=== PATIENT | male | born 1955 | race Caucasian/White ===

== ENCOUNTER 2019-12-18 16:43 | Emergency (ER) | payer MEDICARE, MEDICAID ==
[~2019-12-18] VITALS: Ht 167.6 cm; Wt 74.0 kg
[2019-12-18 17:48] LABS: BASOPHILS % (AUTO) 0.1 % (0-1); EOSINOPHILS % (AUTO) 0.2 % (0-6); HEMATOCRIT 36.6 % (42.0-52.0); HEMOGLOBIN 12.3 g/dl (14.0-17.9); LYMPHOCYTES # (AUTO) 0.6 X10'3 (1.1-4.8); LYMPHOCYTES % (AUTO) 5.4 % (21-51); MEAN CORPUSCULAR HEMOGLOBIN 28.6 PG (27.0-31.0); MEAN CORPUSCULAR HGB CONC 33.6 g/dL (33.0-36.5); MEAN CORPUSCULAR VOLUME 85.3 FL (78-98); MEAN PLATELET VOLUME 8.6 FL (7.4-10.4); MONOCYTES # (AUTO) 0.7 X10'3 (0-0.9); MONOCYTES % (AUTO) 5.6 % (2-12); NEUTROPHILS # (AUTO) 10.3 X10'3 (1.8-7.7); NEUTROPHILS % (AUTO) 88.7 % (42-75); PLATELET COUNT 136 X10'3 (140-440); RED BLOOD COUNT 4.29 X10'6 (4.70-6.10); RED CELL DISTRIBUTION WIDTH 14.8 % (11.5-14.5); WHITE BLOOD COUNT 11.6 X10'3 (4.5-11.0)
[2019-12-18 18:03] LABS: COLOR,URINE YELLOW (Yellow); GLUCOSE, URINE >=1000 mg/dl (Neg); KETONES,URINE NEGATIVE (Neg); LEUKOCYTE ESTERASE ,URINE NEGATIVE (Neg); NITRITES, URINE NEGATIVE (Neg); OCCULT BLOOD,URINE SMALL (Neg); PROTEIN,URINE TRACE mg/dl (Neg); UROBILINOGEN,URINE 0.2 E.U/dL (0.2-1.0)
[2019-12-18 18:10] LABS: CLARITY,URINE CLOUDY (Clear); UA COLLECTION TYPE CLN CATCH MIDSTREAM
[2019-12-18 18:11] LABS: BACTERIA,URINE 3+ /HPF (Neg); MUCUS STRANDS MODERATE /LPF (Neg); SQUAMOUS EPITHELIAL CELL,UR FEW /LPF (FEW); WBC,URINE 20-30 /HPF (0-4)
[2019-12-18 18:12] LABS: WBC CLUMPS,URINE MANY /HPF (NEGATIVE)
[2019-12-18] MEDS ORDERED: LIDOcaine 2% 10ml TOPICAL JELLY (Urojet) MM ONE (18:15)
[2019-12-18] MEDS ORDERED: CefTRIAXone 2gm/D5W 50ml 50 ML IV ONE (18:20)
[2019-12-18 18:22] LABS: ALANINE AMINOTRANSFERASE 55 U/L (12-78); ALBUMIN 2.8 G/DL (3.4-5.0); ALBUMIN/GLOBULIN RATIO 0.8 (1.1-1.5); ALKALINE PHOSPHATASE 87 IU/L (46-116); ANION GAP 4 (8-16); ASPARTATE AMINO TRANSFERASE 36 U/L (10-37); BILIRUBIN,TOTAL 0.5 MG/DL (0.1-1.0); BLOOD UREA NITROGEN 33 MG/DL (7-18); BUN/CREATININE RATIO 17.6 (5.4-32.0); CALCIUM 8.9 MG/DL (8.5-10.1); CHLORIDE 100 MMOL/L (99-107); CREATININE 1.88 MG/DL (0.60-1.10); GLUCOSE 383 MG/DL (70-104); LIPASE 88 U/L (73-393); POTASSIUM 4.4 MMOL/L (3.5-5.1); SODIUM 132 MMOL/L (135-145); TOTAL CARBON DIOXIDE 27.6 MMOL/L (24-32); TOTAL PROTEIN 6.5 G/DL (6.4-8.2); eGFR 36 ML/MIN
[2019-12-18] MEDS ORDERED: fentaNYL/PF 50MCG/1 ML 2ML syringe IV ONE (18:30)
[2019-12-18] MEDS ORDERED: CefTRIAXone inj 2,000 MG in normal saline 100ml IV soln 100 ML IV ONE (18:55)
[2019-12-18] MEDS ORDERED: CEPH500C5 PO (20:37)
[2019-12-18] MEDS ORDERED: normal saline 1000ml 1,000 ML IV ONE (20:40)
[2019-12-18 21:58] VITALS: BP 155/72
== END 2019-12-18 22:02 | disposition home or self-care (01) ==
LOC: ER 16:44
DX: N39.0 Urinary tract infection, site not specified (principal); R33.9 Retention of urine, unspecified; R11.0 Nausea; R10.9 Unspecified abdominal pain; Z88.0 Allergy status to penicillin; Z79.899 Other long term (current) drug therapy
CPT/HCPCS: 36415; 74176; 80053; 81001; 83690; 85025; 87088; 96365; 96375; 99285; J0696; J3010; J7030

== ENCOUNTER 2019-12-29 18:21 | Emergency (ER) | payer MEDICARE, MEDICAID ==
[~2019-12-29] VITALS: Ht 167.6 cm; Wt 69.1 kg
[~2019-12-29 18:21] MED LIST: CEPH500C5 PO
--- NOTE | 2019-12-29 19:12 | NUR ---
PT BLADDER SCANNED AND HAD BETWEEN [phone] IN BLADDER, PT THEN VOIDED 50ML. PT WAS THEN GIVEN 800ML OF WATER TO DRINK AND WE WILL CONTINUE TO MONITOR PT AND SEE IF HE IS ABLE TO VOID.
[2019-12-29 19:44] LABS: CLARITY,URINE CLOUDY (Clear); COLOR,URINE YELLOW (Yellow); GLUCOSE, URINE 250 mg/dl (Neg); KETONES,URINE NEGATIVE (Neg); LEUKOCYTE ESTERASE ,URINE MODERATE (Neg); NITRITES, URINE POSITIVE (Neg); OCCULT BLOOD,URINE MODERATE (Neg); PROTEIN,URINE TRACE mg/dl (Neg); UROBILINOGEN,URINE 0.2 E.U/dL (0.2-1.0)
[2019-12-29 19:48] LABS: UA COLLECTION TYPE URINAL
[2019-12-29 19:51] LABS: BACTERIA,URINE 4+ /HPF (Neg); RBC,URINE 0-2 /HPF (0-2); SQUAMOUS EPITHELIAL CELL,UR NONE SEEN /LPF (FEW); WBC,URINE 20-30 /HPF (0-4)
[2019-12-29] MEDS ORDERED: SULF1TAB49 PO (19:57)
[2019-12-29] MEDS ORDERED: LIDOcaine 2% 10ml TOPICAL JELLY (Urojet) TP ONE (20:00)
[2019-12-29 21:03] VITALS: BP 126/80
== END 2019-12-29 21:04 | disposition home or self-care (01) ==
LOC: ER 18:21
DX: N39.0 Urinary tract infection, site not specified (principal); R33.9 Retention of urine, unspecified; Z88.0 Allergy status to penicillin; Z79.899 Other long term (current) drug therapy
CPT/HCPCS: 51702; 81001; 87077; 87088; 87186; 99284

== ENCOUNTER 2019-12-30 05:57 | Emergency (ER) | payer MEDICARE, MEDICAID ==
[~2019-12-30] VITALS: Ht 167.6 cm; Wt 69.5 kg
[~2019-12-30 05:57] MED LIST changes: +SULF1TAB49 PO
[2019-12-30] MEDS ORDERED: LIDOcaine 2% 10ml TOPICAL JELLY (Urojet) MM ONE (06:30)
[2019-12-30 07:44] VITALS: BP 120/66
== END 2019-12-30 07:50 | disposition home or self-care (01) ==
LOC: ER 05:58
DX: R33.9 Retention of urine, unspecified (principal); F17.200 Nicotine dependence, unspecified, uncomplicated; Z88.0 Allergy status to penicillin; Z79.899 Other long term (current) drug therapy
CPT/HCPCS: 51702; 76857; 99284

== ENCOUNTER 2020-01-14 23:58 | Emergency (ER) | payer MEDICARE, MEDICAID ==
[~2020-01-14] VITALS: Ht 167.6 cm; Wt 68.6 kg
[~2020-01-14 23:58] MED LIST changes: -SULF1TAB49 PO
[2020-01-15 00:05] VITALS: BP 138/76
[2020-01-15] MEDS ORDERED: LIDOcaine 2% 10ml TOPICAL JELLY (Urojet) TP ONE (00:20)
== END 2020-01-15 02:10 | disposition home or self-care (01) ==
LOC: ER 23:58
DX: R33.9 Retention of urine, unspecified (principal); R39.16 Straining to void; Z87.440 Personal history of urinary (tract) infections; Z88.0 Allergy status to penicillin; Z79.2 Long term (current) use of antibiotics
CPT/HCPCS: 51702; 99284

== ENCOUNTER 2020-03-19 09:04 | Day surgery (SDC) | payer MEDICARE, MEDICAID ==
[2020-03-12 13:02] LABS: BASOPHILS % (AUTO) 0.7 % (0-1); EOSINOPHILS # (AUTO) 0.3 X10'3 (0-0.9); LYMPHOCYTES # (AUTO) 2.5 X10'3 (1.1-4.8); LYMPHOCYTES % (AUTO) 37.6 % (21-51); MEAN CORPUSCULAR HEMOGLOBIN 28.6 PG (27.0-31.0); MEAN CORPUSCULAR HGB CONC 33.7 g/dL (33.0-36.5); MEAN CORPUSCULAR VOLUME 84.9 FL (78-98); MEAN PLATELET VOLUME 7.9 FL (7.4-10.4); MONOCYTES # (AUTO) 0.5 X10'3 (0-0.9); MONOCYTES % (AUTO) 7.3 % (2-12); NEUTROPHILS # (AUTO) 3.2 X10'3 (1.8-7.7); NEUTROPHILS % (AUTO) 49.4 % (42-75); PRE OP HEMATOCRIT 40.8 % (42.0-52.0); PRE OP HEMOGLOBIN 13.7 g/dL (14.0-17.9); PRE OP PLATELET COUNT 239 X10'3 (140-440); RED CELL DISTRIBUTION WIDTH 14.4 % (11.5-14.5)
[2020-03-12 13:13] LABS: PARTIAL THROMBOPLASTIN TIME 26 SECONDS (22-32)
[2020-03-12 13:14] LABS: ALBUMIN 4.2 G/DL (3.4-5.0); ALBUMIN/GLOBULIN RATIO 1.2 (1.1-1.5); ALKALINE PHOSPHATASE 59 IU/L (46-116); BLOOD UREA NITROGEN 23 MG/DL (7-18); BUN/CREATININE RATIO 14.8 (5.4-32.0); CALCIUM 9.3 MG/DL (8.5-10.1); CHLORIDE 102 MMOL/L (99-107); CREATININE 1.55 MG/DL (0.60-1.10); PRE OP ALT 20 U/L (30-65); PRE OP ANION GAP 8 (8-16); PRE OP AST 12 U/L (10-37); PRE OP BILIRUB, TOTAL 0.4 MG/DL (0.0-1.0); PRE OP POTASSIUM 4.1 MMOL/L (3.4-5.1); PRE OP SODIUM 137 MMOL/L (135-145); TOTAL CARBON DIOXIDE 26.9 MMOL/L (24-32); TOTAL PROTEIN 7.8 G/DL (6.4-8.2); eGFR 45 ML/MIN
[2020-03-12 13:20] LABS: PRE OP GLUCOSE 216 MG/DL (70-104)
[2020-03-19] VITALS (17 sets, daily range): BP systolic 96–143; BP diastolic 55–79
[~2020-03-19] VITALS: Ht 167.6 cm; Wt 73.9 kg
[~2020-03-19 09:04] MED LIST changes: +ASPI-1071 PO; -CEPH500C5 PO; +DOLU50TA PO; +EMTR1TAB18 PO; +FAMO20TA8 PO; +FLO0.4C PO; +GLIP10TA21 PO; +HYDR30CR79 TOP; +KETO45GE2 TOP; +LISI2.5T2 PO; +MELO15TA13 PO; +METF-900 PO; +PRAV40TA PO; +[UNRECOGNIZED DRUG - CODE] SUBCUT; +famotidine 20mg tablet PO ONE; +levoFLOXACIN-Levaquin 500mg/D5 100 ML IV ONE; +meperidine/PF 25mg/ml syringe IV PRN; +morphine 2 MG/ML inj. syringe IV PRN; +morphine 4 MG/ML inj SYRINge IV PRN; +ondansetron/PF 4mg/2ml inj IV PRN; +proCHLORperazine 10 MG/2 ml inj IV PRN; +ringers solution, lacted 1,000 ML IV SCH
[2020-03-19] MEDS: ringers solution, lacted 1,000 ML IV SCH ×2 (10:03→16:22)
[2020-03-19] MEDS ORDERED: neomy sulf/polymyxin B sulf. GU irrigation 1ml amp IR ONE (10:31)
[2020-03-19] MEDS ORDERED: fentaNYL/PF 50MCG/1 ML 2ML syringe ONE (12:25)
[2020-03-19] MEDS ORDERED: MIDAZolam 5mg/5ml vial ONE (12:25)
[2020-03-19] MEDS ORDERED: propofol inj 20 ML IV ONE (13:07)
[2020-03-19] MEDS ORDERED: zolpidem 5mg tablet PO PRN (14:10)
[2020-03-19] MEDS ORDERED: proCHLORperazine 10 MG/2 ml inj IV PRN (14:10)
[2020-03-19] MEDS ORDERED: acetaminophen 325mg tablet PO PRN (14:10)
[2020-03-19] MEDS ORDERED: mag hydrox/Alum hydrox/simeth 30ml oral suspension PO PRN (14:10)
[2020-03-19] MEDS ORDERED: LIDOcaine 2% 10ml TOPICAL JELLY (Urojet) TP ONE (14:10)
[2020-03-19] MEDS ORDERED: oxybutynin 5mg tablet PO PRN (14:10)
[2020-03-19] MEDS ORDERED: ondansetron/PF 4mg/2ml inj IV PRN (14:10)
--- NOTE | 2020-03-19 14:12 | NUR ---
Received from OR via SURGICAL BED , accompanied by Anesthesiologist RACHANA and report given by Anesthesiolgist. PATIENT WITH 20G PIV IN LEFT UE RUNNING LR AT 100. DENIES PAIN. SPINAL SENSATION AT T11 CURRENTLY. SCDS DONNED. VSS. NINFA DORADO PRESENT 2' LOW TEMPERATURE. [address] ANDREW CATHETER IRRIGATION PRESENT WITH CLEAR YELLOW URINE. Addendum: 03/19/20 at 1422 by Jeff Gonzalez RN, RN Amended: Links added.
[2020-03-19] MEDS ORDERED: HYDROcodone/acetaminophen 10/325mg tab PO PRN (14:40)
--- NOTE | 2020-03-19 15:22 | NUR ---
ALL CRITERIA FOR TRANSFER TO THE FLOOR HAS BEEN ACHIEVED. REPORT GIVEN AND ALL QUESTIONS ANSWERED, VSS. BED LOW 2 RAILS UP, CALL LIGHT PRESENT AND PATIENT HOOKED UP TO ALL LINES AND VSS. PATIENTS RN PRESENT TO ACCEPT CARE. NAUSEATED AND RN PRESENT TO ADMINISTER ZOFRAN AND ASSESS PATIENT. VSS. DENIES PAIN 2' SPINAL ANESTHESIA. ALL QUESTIONS ANSWERED. CARE TURNED OVER TO IGLESIA WALTERS. Addendum: 03/19/20 at 1541 by Jeff Figueroa - IGLESIA RN Amended: Links added.
[2020-03-19] MEDS: ceFAZolin/D5W- 1GM premix 50 ML IV SCH (16:22)
[2020-03-19] MEDS: metFORMIN 500mg tablet PO SCH (17:21)
[2020-03-19] MEDS: potassium cl 20mEq in 1/2 NS 1,000 ML IV SCH (17:22)
--- NOTE | 2020-03-19 18:33 | NUR ---
Problems reprioritized. Patient report given, questions answered & plan of care reviewed with Pamela PAREKH.
[2020-03-19] MEDS: docusate sod 100mg capsule PO SCH (20:23)
[2020-03-19] MEDS ORDERED: famotidine 20mg tablet PO SCH (21:00)
[2020-03-20] VITALS: BP 115/69
[2020-03-20] MEDS: ceFAZolin/D5W- 1GM premix 50 ML IV SCH ×2 (00:02→07:52)
[2020-03-20] MEDS: potassium cl 20mEq in 1/2 NS 1,000 ML IV SCH ×2 (02:13→07:51)
[2020-03-20 04:29] VITALS: BP 118/71
[2020-03-20 05:20] LABS: ALBUMIN 3.2 G/DL (3.4-5.0); ANION GAP 7 (8-16); BLOOD UREA NITROGEN 16 MG/DL (7-18); CALCIUM 8.5 MG/DL (8.5-10.1); CHLORIDE 106 MMOL/L (99-107); CREATININE 1.23 MG/DL (0.60-1.10); GLUCOSE 197 MG/DL (70-104); POTASSIUM 4.6 MMOL/L (3.5-5.1); SODIUM 139 MMOL/L (135-145); TOTAL CARBON DIOXIDE 26.3 MMOL/L (24-32); eGFR 59 ML/MIN
[2020-03-20 05:28] LABS: BASOPHILS % (AUTO) 0.3 % (0-1); EOSINOPHILS # (AUTO) 0.1 X10'3 (0-0.9); EOSINOPHILS % (AUTO) 1.5 % (0-6); HEMATOCRIT 37.4 % (42.0-52.0); HEMOGLOBIN 12.6 g/dl (14.0-17.9); LYMPHOCYTES # (AUTO) 1.4 X10'3 (1.1-4.8); LYMPHOCYTES % (AUTO) 20.4 % (21-51); MEAN CORPUSCULAR HEMOGLOBIN 28.6 PG (27.0-31.0); MEAN CORPUSCULAR HGB CONC 33.7 g/dL (33.0-36.5); MEAN PLATELET VOLUME 7.9 FL (7.4-10.4); MONOCYTES # (AUTO) 0.6 X10'3 (0-0.9); MONOCYTES % (AUTO) 9.3 % (2-12); NEUTROPHILS # (AUTO) 4.7 X10'3 (1.8-7.7); NEUTROPHILS % (AUTO) 68.5 % (42-75); PLATELET COUNT 196 X10'3 (140-440); RED CELL DISTRIBUTION WIDTH 14.2 % (11.5-14.5); WHITE BLOOD COUNT 6.9 X10'3 (4.5-11.0)
--- NOTE | 2020-03-20 06:38 | NUR ---
Problems reprioritized. Patient report given, questions answered & plan of care reviewed with Stefanie PAREKH.
[2020-03-20] MEDS ORDERED: pantoprazole 40mg Tablet.DR PO SCH (07:30)
[2020-03-20 07:40] VITALS: BP 108/66
[2020-03-20] MEDS: metFORMIN 500mg tablet PO SCH (07:52)
[2020-03-20] MEDS: docusate sod 100mg capsule PO SCH (07:53)
[2020-03-20] MEDS ORDERED: tamsulosin 0.4mg capsule PO SCH (08:00)
[2020-03-20] MEDS ORDERED: pravastatin 40mg tablet PO SCH (08:00)
[2020-03-20] MEDS ORDERED: lisinopril 2.5mg tablet PO SCH (08:00)
[2020-03-20] MEDS ORDERED: DOCU-148 PO (12:30)
[2020-03-20 12:36] VITALS: BP 114/60
--- NOTE | 2020-03-20 14:12 | NUR ---
patient stable and appropriate for discharge home. iv removed. all belongings taken from room. patient has been instructed on leg bag and night bag care. he fully understands this education, he has had a catheter at home in the past. new prescription has been called into preferred pharmacy. discharge instructions and education given and reviewed with patient, all questions answered.
== END 2020-03-20 13:35 | disposition home or self-care (01) ==
LOC: PAS 09:04 → SUR 3N 15:30 → PAS 03-20 13:35
PROVIDERS: ATTEND Urology
DX: N40.1 Benign prostatic hyperplasia with lower urinary tract symptoms (principal); N13.8 Other obstructive and reflux uropathy; R33.8 Other retention of urine; N32.3 Diverticulum of bladder; E11.22 Type 2 diabetes mellitus with diabetic chronic kidney disease; N18.9 Chronic kidney disease, unspecified; K21.9 Gastro-esophageal reflux disease without esophagitis; Z20.828 Contact with and (suspected) exposure to other viral communicable diseases; Z79.01 Long term (current) use of anticoagulants; Z79.899 Other long term (current) drug therapy; Z79.82 Long term (current) use of aspirin; Z79.84 Long term (current) use of oral hypoglycemic drugs; Z88.0 Allergy status to penicillin; Z87.440 Personal history of urinary (tract) infections; Z98.890 Other specified postprocedural states; Z87.891 Personal history of nicotine dependence
CPT/HCPCS: 36415; 52601; 80048; 80053; 82948; 85025; 85610; 85730; 86885; 86900; 86901; 87635; 93005; J0690; J1956; J2250; J2405; J2704; J3010; J7120; 88305; A4346; A4355; A4615; G0378; J3480